=== PATIENT | male | born 1970 | race Caucasian/White ===

== ENCOUNTER → 2021-09-21 | Outpatient (CLI) | payer BC | LOC: SLEEP 21:30 | DX: R06.83 Snoring (principal); G47.33 Obstructive sleep apnea (adult) (pediatric) | CPT/HCPCS: 95811 ==

== ENCOUNTER 2021-10-10 11:38 | Emergency (ER) | payer BC ==
[~2021-10-10] VITALS: Ht 188 cm; Wt 133.8 kg
== END 2021-10-10 15:12 | disposition home or self-care (01) ==
LOC: ER1 11:38
DX: U07.1 COVID-19 (principal); Z23 Encounter for immunization; Z88.1 Allergy status to other antibiotic agents; I10 Essential (primary) hypertension; E78.5 Hyperlipidemia, unspecified
CPT/HCPCS: 99283; M0245

== ENCOUNTER → 2022-05-01 | Outpatient (CLI) | payer BC | LOC: EXRD 09:10 | DX: M79.672 Pain in left foot (principal) | CPT/HCPCS: 73630 ==